=== PATIENT | female | born 1960 | race Two or more races ===

== ENCOUNTER → 2024-11-25 | Outpatient (CLI) | payer MEDICARE, SELFPAY ==
--- NOTE | 2024-11-25 14:30 | XR_ITS ---
Examination: Breast ultrasound complete, bilateral Date and time of exam: November 25, 2024 1422 hours INDICATIONS: Bilateral breast pressure and pain nipple discharge 3 months Technique: Real-time grayscale ultrasonographic imaging bilateral breasts, including all 4 quadrants as well as nipple retroareolar and axillary regions. Findings: Sonographic images right breast 12:00 cyst 7 x 7 mm No solid nodules Sonographic images left breast 12:00 cyst 5 x 5 mm 1:00 cyst 6 x 5 mm Retroareolar cyst 4 x 5 mm 9:00 oval mass circumscribed 3 x 3 mm IMPRESSION: BI-RADS Category 2: Benign findings
--- NOTE | 2024-11-25 15:30 | XR_ITS ---
Examination: Diagnostic digital mammography, bilateral Computer aided detection 3-D breast Tomosynthesis, bilateral Date and time of exam: November 25, 2024 1356 hours Compared to mammograms dating to June 30, 2018 INDICATIONS: Bilateral breast pressure and brown nipple discharge 3 months Technique: Nonmagnified MLO, CC views of the breasts to been obtained, reconstructed from 3-D Tomosynthesis images. R2 computer aided detection program utilized for evaluation of suspicious masses and/or abnormal calcifications. 3-D Tomosynthesis images obtained. Findings: The breasts are heterogeneously dense, which may obscure small masses 10 mm nodule inner slightly upper right breast 7 mm nodule nipple level left breast IMPRESSION: BI-RADS Category 0: Incomplete: Need additional imaging evaluation 10 mm nodule inner slightly upper right breast, recommend follow-up spot tomographic views of 7 mm nodule nipple level left breast, recommend follow-up spot tomographic views
== END | disposition home or self-care (01) ==
PROVIDERS: PCP Physician Assistant; Referring Provider Physician Assistant; Visit Provider Physician Assistant
DX: R92.8 Other abnormal and inconclusive findings on diagnostic imaging of breast (principal); N63.12 Unspecified lump in the right breast, upper inner quadrant; N63.20 Unspecified lump in the left breast, unspecified quadrant; N60.01 Solitary cyst of right breast; N60.02 Solitary cyst of left breast
CPT/HCPCS: 76641; 77062; 77066; G0279

== ENCOUNTER → 2025-05-05 | Outpatient (CLI) | payer OTHER, SELFPAY ==
--- NOTE | 2025-05-05 14:15 | XR_ITS ---
Examination: Diagnostic digital mammography, bilateral Computer aided detection 3-D breast Tomosynthesis, bilateral Date and time of exam: 05/05/2025 1356 hours INDICATIONS: Mammogram November 25, 2024 10 mm nodule inner upper right breast 7 mm nodule nipple level left breast Technique: Nonmagnified MLO, CC views of the breasts to been obtained, reconstructed from 3-D Tomosynthesis images. R2 computer aided detection program utilized for evaluation of suspicious masses and/or abnormal calcifications. 3-D Tomosynthesis images obtained. Findings: The breasts are heterogeneously dense, which may obscure small masses Stable circumscribed 9 mm nodule inner right breast Stable circumscribed nodules retroareolar region left breast Impression: BI-RADS Category 2: Benign findings Recommend yearly follow-up mammography.
== END | disposition home or self-care (01) ==
LOC: CDIM 13:46
PROVIDERS: Referring Provider Physician Assistant; Visit Provider Physician Assistant
DX: R92.333 Mammographic heterogeneous density, bilateral breasts (principal); N63.41 Unspecified lump in right breast, subareolar; N63.10 Unspecified lump in the right breast, unspecified quadrant
CPT/HCPCS: 77062; 77066; G0279